=== PATIENT | female | born 1980 | race Caucasian/White ===

== ENCOUNTER → 2021-04-07 15:08 | Outpatient (CLI) | payer OTHER, SELFPAY ==
--- NOTE | 2021-04-07 15:09 | DI.RAD.S_ITS ---
PROCEDURE: XR ABDOMEN 1V INDICATIONS: Missing Copper Piece of IUD TECHNIQUE: One view of the abdomen acquired. COMPARISON: None. FINDINGS: Surgical changes and devices: None. Bowel: Bowel gas pattern is normal. Soft tissues: No suspicious abdominal calcifications. Visualized solid organ contours appear normal in size. Bones: No suspicious bony lesions. IMPRESSION: No visualized radiopaque foreign body. Dictated by: Mayda Valenzuela M.D. on 04/07/2021 at 15:30 Approved by: Mayda Valenzuela M.D. on 04/07/2021 at 15:31
== END ==
PROVIDERS: PCP Obstetrics & Gynecology; Referring Provider Obstetrics & Gynecology; Visit Provider Obstetrics & Gynecology
DX: T83.39XA Other mechanical complication of intrauterine contraceptive device, initial encounter (principal)
CPT/HCPCS: 74018

== ENCOUNTER → 2021-04-08 08:05 | Outpatient (CLI) | payer OTHER, SELFPAY ==
[2021-04-08 08:33] LABS: COVID19 -Nasal RAPID Negative (Negative)
== END ==
PROVIDERS: Visit Provider Obstetrics & Gynecology
DX: Z01.812 Encounter for preprocedural laboratory examination (principal); Z20.822 Contact with and (suspected) exposure to COVID-19
CPT/HCPCS: 87635